=== PATIENT | female | born 1985 | race Caucasian/White ===

== ENCOUNTER 2021-03-16 12:31 | Emergency (ER) | payer BC ==
[2021-03-16] MEDS: Sodium Chloride 0.9% 1,000 ML IV ONE ×2 (13:19→14:16)
[2021-03-16 13:20] LABS: ANION GAP 10.7 meq/L (7-15)
[2021-03-16] MEDS: Ondansetron 4 MG/2 ML SDV IVPUSH ONE (13:21)
--- NOTE | 2021-03-16 15:28 | EDM.PDOC ---
ED HPI GENERAL MEDICAL PROBLEM - General Chief Complaint: Gastrointestinal Problem Stated Complaint: DIARRHEA, ABDOMINAL PAIN Time Seen by Provider: 03/16/21 13:00 Source of Information: Reports: Patient History Limitations: Reports: No Limitations - History of Present Illness INITIAL COMMENTS - FREE TEXT/NARRATIVE: Patient started to have emesis/nausea last Monday, 3 days ago. Did recall eating out at restaurant earlier that day. Started to have liquid stools yesterday. Hx renal transplant and was worried about dehydration stress on kidney so came in for IV fluids/eval. Some chills. No fever. Denies other changes. Upper Abdominal Pain Score (Numeric/FACES): 4 - Related Data Allergies Allergy/AdvReac Type Severity Reaction Status Date / Time No Known Drug Allergies Allergy Other Verified 03/16/21 12:32 Home Meds: Home Meds Calcium Carbonate/Vitamin D3 [Calcium Carbonate/Vitamin D 600 MG-200 Unit] 1 tab PO BID 03/16/21 [History] Cholecalciferol (Vitamin D3) [Vitamin D3] 1 cap PO DAILY 03/16/21 [History] Labetalol [Normodyne] 300 mg PO BID 03/16/21 [History] Tacrolimus 2 mg PO BID 03/16/21 [History] mycophenolate mofetiL [Cellcept] 500 mg PO BID 03/16/21 [History] Past Medical History Immunologic History: Reports: Solid Organ Transplant (kidney), Other (See Below) (ITP) Social & Family History - Tobacco Use Tobacco Use Status *Q: Former Tobacco User Used Tobacco, but Quit: Yes Month/Year Tobacco Last Used: 1999 - Caffeine Use Caffeine Use: Reports: None - Recreational Drug Use Recreational Drug Use: No ED ROS GENERAL - Review of Systems Review Of Systems: See Below Constitutional: Reports: Chills, Malaise, Decreased Appetite. Denies: Fever, Weakness, Night Sweats, Diaphoresis HEENT: Reports: No Symptoms Respiratory: Reports: No Symptoms Cardiovascular: Reports: No Symptoms Endocrine: Reports: No Symptoms GI/Abdominal: Reports: Diarrhea, Decreased Appetite, Nausea, Vomiting. Denies: Hematemesis, Melena : Reports: No Symptoms Musculoskeletal: Reports: No Symptoms Skin: Reports: No Symptoms Neurological: Reports: No Symptoms Psychiatric: Reports: No Symptoms Hematologic/Lymphatic: Reports: No Symptoms ED EXAM, GENERAL - Physical Exam Exam: See Below Exam Limited By: No Limitations General Appearance: Alert, WD/WN, No Apparent Distress Eye Exam: Bilateral Eye: EOMI, PERRL Ears: Normal External Exam, Hearing Grossly Normal Nose: No: Nasal Deformity, Nasal Swelling, Nasal Drainage Throat/Mouth: Normal Lips, Normal Voice, No Airway Compromise Head: Atraumatic, Normocephalic Neck: Normal Inspection, Supple, Non-Tender, Full Range of Motion Respiratory/Chest: No Respiratory Distress, Lungs Clear, Normal Breath Sounds, No Accessory Muscle Use, Chest Non-Tender Cardiovascular: Regular Rate, Rhythm, No Murmur GI/Abdominal: Soft, Non-Tender, Abnormal Bowel Sounds (diminished throughout) (Female) Exam: Deferred Rectal (Female) Exam: Deferred Back Exam: Normal Inspection Extremities: Normal Range of Motion, Non-Tender, No Pedal Edema, Slow Capillary Refill Neurological: Alert, Oriented, Normal Cognition, Normal Gait, No Motor/Sensory Deficits Psychiatric: Normal Affect, Normal Mood Skin Exam: Warm, Dry, Intact, Normal Color Course - Vital Signs Last Recorded V/S: Last Vital Signs Temp 36.6 C 03/16/21 14:28 Pulse 80 03/16/21 14:28 Resp 14 03/16/21 14:28 BP 126/72 03/16/21 14:28 Pulse Ox 100 03/16/21 14:28 - Orders/Labs/Meds Orders: Active Orders 24 hr Category Date Time Status Abdomen 2V AP Flat Upright [CR] Stat Exams 03/16/21 12:36 Taken Labs: Laboratory Tests 03/16/21 03/16/21 03/16/21 Range/Units 12:54 12:54 12:54 WBC 4.3 (4.0-10.2) K/uL RBC 5.36 H (3.77-5.09) M/uL Hgb 14.3 (11.7-15.5) g/dL Hct 42.3 (34.0-46.0) % MCV 78.9 L (84.0-98.0) fL MCH 26.7 L (28.2-33.3) pg MCHC 33.8 (31.7-36.0) g/dL RDW 13.2 (11.2-14.1) % Plt Count 99 L (150-350) K/uL Neut % (Auto) 66.6 (45.0-80.0) % Lymph % (Auto) 21.1 (10.0-50.0) % Ransom % (Auto) 11.6 (2.0-14.0) % Eos % (Auto) 0.7 (0.0-5.0) % Baso % (Auto) 0.0 (0.0-2.0) % Neut # (Auto) 2.88 (1.40-7.00) K/uL Lymph # (Auto) 0.91 (0.50-3.50) K/uL Ransom # (Auto) 0.50 (0.00-1.00) K/uL Eos # (Auto) 0.03 (0.00-0.50) K/uL Baso # (Auto) 0.00 (0.00-0.20) K/uL Sodium 141 (136-145) mmol/L Potassium 4.0 (3.5-5.1) mmol/L Chloride 107 (98-107) mmol/L Carbon Dioxide 23.3 (21.0-32.0) mmol/L Anion Gap 10.7 (7-15) meq/L BUN 16 (7-18) mg/dL Creatinine 1.33 H (0.51-1.17) mg/dL Est Cr Clr Drug Dosing 50.50 mL/min Estimated GFR (MDRD) 45 mL/min Glucose 112 H (70-99) mg/dL Lactic Acid 0.8 (0.4-2.0) mmol/L Calcium 8.9 (8.5-10.1) mg/dL Magnesium 1.7 L (1.8-2.4) mg/dL Total Bilirubin 0.9 (0.2-1.0) mg/dL AST 21 (15-37) U/L ALT 27 (12-78) U/L Alkaline Phosphatase 55 (46-116) IU/L Total Protein 7.6 (6.4-8.2) g/dL Albumin 4.4 (3.4-5.0) g/dL Specimen Type Urine Color Urine Appearance Urine pH (5.0-9.0) Ur Specific Hannacroix (1.005-1.030) Urine Protein (NEGATIVE) mg/dL Urine Glucose (UA) (NEGATIVE) mg/dL Urine Ketones (NEGATIVE) mg/dL Urine Occult Blood (NEGATIVE) Urine Nitrite (NEGATIVE) Urine Bilirubin (NEGATIVE) Urine Urobilinogen (0.2-1.0) E.U./dL Ur Leukocyte Esterase (NEGATIVE) Urine RBC /HPF Urine WBC /HPF Ur Epithelial Cells /LPF Urine Bacteria (NONE TO FEW) /HPF Urine Mucus (NEGATIVE) /LPF 03/16/21 Range/Units 12:58 WBC (4.0-10.2) K/uL RBC (3.77-5.09) M/uL Hgb (11.7-15.5) g/dL Hct (34.0-46.0) % MCV (84.0-98.0) fL MCH (28.2-33.3) pg MCHC (31.7-36.0) g/dL RDW (11.2-14.1) % Plt Count (150-350) K/uL Neut % (Auto) (45.0-80.0) % Lymph % (Auto) (10.0-50.0) % Ransom % (Auto) (2.0-14.0) % Eos % (Auto) (0.0-5.0) % Baso % (Auto) (0.0-2.0) % Neut # (Auto) (1.40-7.00) K/uL Lymph # (Auto) (0.50-3.50) K/uL Ransom # (Auto) (0.00-1.00) K/uL Eos # (Auto) (0.00-0.50) K/uL Baso # (Auto) (0.00-0.20) K/uL Sodium (136-145) mmol/L Potassium (3.5-5.1) mmol/L Chloride (98-107) mmol/L Carbon Dioxide (21.0-32.0) mmol/L Anion Gap (7-15) meq/L BUN (7-18) mg/dL Creatinine (0.51-1.17) mg/dL Est Cr Clr Drug Dosing mL/min Estimated GFR (MDRD) mL/min Glucose (70-99) mg/dL Lactic Acid (0.4-2.0) mmol/L Calcium (8.5-10.1) mg/dL Magnesium (1.8-2.4) mg/dL Total Bilirubin (0.2-1.0) mg/dL AST (15-37) U/L ALT (12-78) U/L Alkaline Phosphatase (46-116) IU/L Total Protein (6.4-8.2) g/dL Albumin (3.4-5.0) g/dL Specimen Type Urinvoid Urine Color Yellow Urine Appearance Clear Urine pH 5.5 (5.0-9.0) Ur Specific Hannacroix >= 1.030 (1.005-1.030) Urine Protein 30 H (NEGATIVE) mg/dL Urine Glucose (UA) Negative (NEGATIVE) mg/dL Urine Ketones Negative (NEGATIVE) mg/dL Urine Occult Blood Negative (NEGATIVE) Urine Nitrite Negative (NEGATIVE) Urine Bilirubin Negative (NEGATIVE) Urine Urobilinogen 0.2 (0.2-1.0) E.U./dL Ur Leukocyte Esterase Negative (NEGATIVE) Urine RBC Not seen /HPF Urine WBC 5-10 H /HPF Ur Epithelial Cells Many H /LPF Urine Bacteria Moderate H (NONE TO FEW) /HPF Urine Mucus Few H (NEGATIVE) /LPF Meds: Medications Discontinued Medications Generic Name Dose Route Start Last Admin Trade Name Freq PRN Reason Stop Dose Admin Sodium Chloride 1,000 mls @ 999 mls/hr 03/16/21 13:02 03/16/21 13:19 Normal Saline IV 03/16/21 14:02 999 mls/hr .BOLUS ONE Administration Sodium Chloride 1,000 mls @ 999 mls/hr 03/16/21 14:15 03/16/21 14:16 Normal Saline IV 03/16/21 15:15 999 mls/hr .BOLUS ONE Administration Ondansetron HCl 4 mg 03/16/21 13:03 03/16/21 13:21 Ondansetron 4 Mg/2 Ml Sdv IVPUSH 03/16/21 13:04 4 mg ONETIME ONE Administration - Re-Assessments/Exams Free Text/Narrative Re-Assessment/Exam: 03/16/21 15:54 Mildly diminished cap refill. IV fluids ordered. Zofran. 2L infused. WBC normal. Cr 1.33 Mag 1.7 Plt 99 Patient felt better after IV fluids. VSS. No emesis/bowel movements during stay. OK to go home and follow up as needed. Recommend checking in with renal MD and see if ok to start Mag supplementation. Precautions reviewed prior to discharge. Departure - Departure Time of Disposition: 15:27 Disposition: Home, Self-Care 01 Condition: Good Clinical Impression: Gastroenteritis, Dehydration, Hypomagnesemia - Discharge Information *PRESCRIPTION DRUG MONITORING PROGRAM REVIEWED*: Not Applicable *COPY OF PRESCRIPTION DRUG MONITORING REPORT IN PATIENT CARMELA: Not Applicable Instructions: Viral Gastroenteritis, Adult, [id number] Referrals: Neeta Workman PA-C [Primary Care Provider] - Forms: ED Department Discharge Additional Instructions: See how you feel over the next few days. Advance diet as tolerated. Stay hydrated! Follow up as needed. Sepsis Event Note (ED) - Evaluation Sepsis Screening Result: No Definite Risk - Focused Exam Vital Signs: Vital Signs Temp Pulse Resp BP Pulse Ox 03/16/21 14:28 36.6 C 80 14 126/72 100 03/16/21 12:35 36.6 C 88 16 104/70 100 - My Orders Last 24 Hours: My Active Orders 03/16/21 12:36 Abdomen 2V AP Flat Upright [CR] Stat - Assessment/Plan Last 24 Hours: My Active Orders 03/16/21 12:36 Abdomen 2V AP Flat Upright [CR] Stat
== END 2021-03-16 15:35 | disposition home or self-care (01) ==
LOC: LL.ED 12:31
DX: K52.9 Noninfective gastroenteritis and colitis, unspecified (principal); E86.0 Dehydration; E83.42 Hypomagnesemia; Z87.891 Personal history of nicotine dependence; Z94.0 Kidney transplant status; Z79.899 Other long term (current) drug therapy
CPT/HCPCS: 36415; 74019; 80053; 81001; 83605; 83735; 85025; 87086; 87088; 87186; 96374; 99283; 99284-25; J2405; J7030

== ENCOUNTER 2021-10-19 16:16 | Emergency (ER) | payer BC ==
[2021-10-19] MEDS ORDERED: Sodium Chloride 0.9% 1,000 ML IV ONE ×2 (17:00→17:59)
[2021-10-19] MEDS ORDERED: Ondansetron 4 MG/2 ML SDV IVPUSH ONE (17:00)
[2021-10-19 17:25] LABS: ANION GAP 18.2 meq/L (7-15)
[2021-10-19 17:36] LABS: CORONAVIRUS COVID-19 NAA NEGATIVE (NEGATIVE); RESPIRATORY SYNCYTIAL VIR NAA NEGATIVE (NEGATIVE)
[2021-10-19] MEDS ORDERED: Loperamide 2 MG Tab PO ONE (19:11)
== END 2021-10-19 19:29 | disposition home or self-care (01) ==
LOC: LL.ED 16:16
DX: J10.1 Influenza due to other identified influenza virus with other respiratory manifestations (principal); E86.0 Dehydration; Z20.822 Contact with and (suspected) exposure to COVID-19
CPT/HCPCS: 0241U; 36415; 80053; 83605; 83735; 85025; 96374; 99283; 99284; A9270; J2405; J7030